=== PATIENT | male | born 1955 | race Caucasian/White ===

== ENCOUNTER 2018-12-04 08:44 | Inpatient (IN) | payer OTHER, SELFPAY ==
[2018-12-04] VITALS (33 sets, daily range): BP systolic 77–155; BP diastolic 47–89; PULSE 61–662; RESP 12–23; TEMP 35.8–37.2; O2SAT 92–100; BMI 27.3; BMI 25.9; BMI 26.0
[2018-12-04] MEDS: TICAGRELOR 90 MG TABLET 180 MG PO (08:47)
[2018-12-04] MEDS: Heparin 10,000 UNITS/10 ML Vial 4000 UNITS IV (08:47)
[2018-12-04] MEDS: Aspirin 81 MG TAB.CHEW 324 MG PO (08:47)
--- NOTE | 2018-12-04 08:50 | RAD_ITS ---
STUDY: X-RAY CHEST REASON FOR EXAM: Male, 63 years old. Chest pain TECHNIQUE: Single frontal view COMPARISON: None. FINDINGS: The lungs are clear and expanded. There is no demonstrated pleural abnormality. Normal size heart. Normal mediastinum and jared. Normal visualized pulmonary arteries. Normal visualized aortic arch and descending thoracic aorta. Normal visualized thoracic spine. Normal visualized ribs, clavicles, and shoulders. There is no demonstrated abnormality of the visualized soft tissue structures of the upper abdomen. RAD/Chest 1 View (Portable) IMPRESSION: Normal x-ray examination of the chest. Electronically Signed: Jhoan Rios DO at 9:03 EDT Tel [phone], Service support ,
[2018-12-04] MEDS: Morphine 4 MG/ML Syringe IV (08:56)
[2018-12-04] MEDS: Ondansetron 4 MG/2 ML Vial IV (08:56)
--- NOTE | 2018-12-04 09:00 | EKG12_ITS ---
Test Reason : CP Blood Pressure : / mmHG Vent. Rate : 059 BPM Atrial Rate : 059 BPM P-R Int : 190 ms QRS Dur : 102 ms QT Int : 392 ms P-R-T Axes : 062 049 051 degrees QTc Int : 388 ms Sinus bradycardia Cannot rule out Inferior infarct , age undetermined Anterolateral injury pattern ACUTE CO / STEMI Abnormal ECG Confirmed by LUIS MCCORMICK, FELICIA ([id number]), manuscript editor KAYLAN MAJANO ([id number]) on 12/06/2018 7:58:20 AM Referred By: Keysha Curtis Confirmed By:FELICIA SMITH MD
--- NOTE | 2018-12-04 09:03 | ED.VISSUMM ---
- ER Visit Summary Date of Service: 12/04/18 Chief Complaint: [] Chest pain driving car History of Present Illness: The patient is a 63 M [] patient indicates about 10 minutes because he was driving his car he began having left-sided chest pain and some diaphoresis brought to the hospital, he was found to have ST segment elevation on the monitor, he immediately underwent STEMI protocol, EKG showed ST segment elevation in the anterior leads, STEMI protocol was activated, he indicates he has not been ill recently, he had no fever no cough he is not prone to chest pain he has no history of heart lung kidney liver disease or any medical problems other than report his white blood cell count was elevated he was seen by hematology and there was no acute gross abnormality and he is being monitored. He indicates he is having chest pain only and some slight diaphoresis no back pain no numbness weakness or paresthesias no abdominal pain no fever cough he has not exerted himself in any way today, he denies any other medical problems he is on no telemetry meds Physical Examination: [] 15/80 pulse ox is 98% on room air he is afebrile General, no distress resting comfortably HEENT is generally unremarkable The neck is supple no adenopathy Cardiovascular, regular rate and rhythm Lungs, clear bilateral Abdomen, soft nontender Extremities, no clubbing cyanosis or edema Neurologic, awake alert answering questions appropriately moving all 4 extremities Test Results: [] Emergency Department Course and Treatment: [] EKG shows ST segment elevation in the anterior leads, STEMI protocol and cardiology were immediately contacted they are coming to see him he is undergone STEMI protocol with all the present medications he is been medicated for pain he remained hemodynamically stable here awake and alert pending direct transfer to cardiac [facility] [employer], he does report his pain which was about an 8 is not now down to about a 3 he is feeling better he is receiving IV fluid boluses Treatment Plan: [] Disposition: [] Admit directly to cardiac [facility] [employer] for STEMI treatment Impression: [] Acute anterior MD This note was generated with [employer] dictation software. It may contain incorrect words, spelling, and punctuation that were not noted in review of the chart prior to signing ED Disposition - Plan for ED Patient: Referrals: [facility] Doctor,Out of [Primary Care Provider] -
[2018-12-04] MEDS: 0.9% Normal Saline 1,000 ML 999 ML IV ×2 (09:04)
[2018-12-04 09:12] LABS: Absolute Lymphocyte Count 5.28 X10^3/ul (0.83-4.51); Absolute Neutrophil Count 4.1 X10^3/uL (2.0-7.7); Basophil# 0.04 X10^3/uL; Basophil% 0.4 % (0-1); Eosinophil# 0.14 X10^3/uL; Eosinophils% 1.3 % (0-5); Hematocrit 46.6 % (40-54); Hemoglobin 16.3 g/dl (13.0-16.5); Lymphocyte # 5.28 X10^3/ul (4.0); Lymphocyte % 48.9 % (19-41); Mean Corpuscular Hgb 31.2 pg (27.0-32.0); Mean Corpuscular Volume 89.3 fL (80-94); Mean Platelet Vol. 11.7 fl (6.2-12.0); Monocyte# 1.23 X10^3/uL; Monocyte% 11.4 % (0-10); Neutrophil # 4.07 X10^3/uL (2.7-7.7); Neutrophil % 37.7 % (47-70); Platelet Count 125 K/mm3 (150-450); RBC Distribution Width CV 13.3 % (11.6-14.6); RBC Distribution Width SD 43.4 fl (35.1-43.9); Red Blood Count 5.22 M/mm3 (4.6-6.2); White Blood Count 10.8 K/mm3 (4.4-11.0)
[2018-12-04 09:13] LABS: Differential Indicated SCAN CRITERIA MET; POSITIVE COUNT NO; POSITIVE DIFFERENTIAL YES; POSITIVE MORPHOLOGY NO; Prothrombin Time (Protime)PT. 13.4 SECONDS (11.7-14.9)
[2018-12-04 09:14] LABS: Partial Thromboplast Time 27.5 Seconds (24.1-36.2)
[2018-12-04 09:27] LABS: Anion Gap 6 (5-15); BUN 16 mg/dL (7-18); Calcium,Total 8.3 mg/dL (8.5-10.1); Chloride 107 mmol/L (98-107); Creatinine, Serum 0.94 mg/dL (0.70-1.30); EST Glomerular Filtration Rate 86 mL/min (>60); Est Glom Filt Rate - Afr Amer 104 mL/min (>60); Estimated Creatinine Clearance 95.95 ml/min; Glucose 119 mg/dL (74-106); Potassium 3.6 mmol/L (3.5-5.1); Sodium Level 141 mmol/L (136-145)
[2018-12-04 09:36] LABS: Reactive Lymphocyte 1+
[2018-12-04 09:37] LABS: Platelet Estimate SLT DEC (ADEQ)
--- NOTE | 2018-12-04 09:37 | PCM.CONS.C ---
Reason for Consult Date of Consultation: 12/04/18 Reason for Consultation: Chest pain History of Present Illness: The patient is a 63 year old M patient indicates that approximately 815 this morning he was driving his car he began having left-sided chest pain and some diaphoresis brought to the hospital, he was found to have ST segment elevation on the monitor, he immediately underwent STEMI protocol, EKG showed ST segment elevation in the anterior leads, STEMI protocol was activated, he indicates he has not been ill recently, he had no fever no cough he is not prone to chest pain he has no history of heart lung kidney liver disease or any medical problems other than report his white blood cell count was elevated he was seen by hematology and there was no acute gross abnormality and he is being monitored. He indicates he is having chest pain only and some slight diaphoresis no back pain no numbness weakness or paresthesias no abdominal pain no fever cough he has not exerted himself in any way today, he has previously not had any chest pain before. Past Medical History Allergies/Adverse Reactions: Allergies No Known Allergies Allergy (Verified 12/04/18 08:48) Home Medications: Ambulatory Orders Medication Instructions Recorded NK 12/04/18 Surgical History: no surgical history Smoking Status: Never smoker Alcohol: None Drugs: None Subjectve: Pleasant middle-aged man in no distress Objective: Vital Signs Temp Pulse Resp BP Pulse Ox 96.4 F L 65 14 85/64 L 98 12/04/18 08:58 12/04/18 09:11 12/04/18 09:11 12/04/18 09:11 12/04/18 09:11 Oxygen Flow Rate (L/min) 2 Oxygen Delivery Method Nasal Cannula Weight: 212 lb 15.465 oz Body Mass Index (BMI) 27.3 General: Awake, Alert, Oriented x 3 HEENT: PERRL, EOMI, Sclera Non Icteric Neck: Supple, Good ROM, No Lymph Node Enlargement Lungs: Clear to auscultation Cardiovascular: Regular Rhythm, Normal S1, Normal S2, No Murmurs, No Rubs, No Gallops Vascular: No Carotid Bruits, Normal Femoral Pulses, Normal Radial Pulses, Normal Dorsalis Pedal Pulse, Normal Posterior Tibial Pulses Abdomen: Bowel Sounds Present, Soft, Non Tender, No HSM, No Organomegaly Extremities: No Cyanosis, No Clubbing, No edema Musculoskeletal: No Erythema Skin: No Rashes Lymphatic: No Lymph Node Enlargement Neurological: No Focal Motor or Sensory Deficit Psych/Mental Status: Appropriate 12/04/18 09:06: WBC 10.8, RBC 5.22, Hgb 16.3, Hct 46.6, MCV 89.3, MCH 31.2, MCHC 35.0, RDW 13.3, RDW Differential 43.4, Plt Count 125 L, MPV 11.7, Immature Gran % (Auto) 0.300, Neut % (Auto) 37.7 L, Lymph % (Auto) 48.9 H, Holt % (Auto) 11.4 H, Eos % (Auto) 1.3, Baso % (Auto) 0.4, Absolute Neuts (auto) 4.1 12/04/18 09:06: PT 13.4, INR 1.0, APTT 27.5 12/04/18 09:06: Sodium 141, Potassium 3.6, Chloride 107, Carbon Dioxide 28.0, Anion Gap 6, BUN 16, Creatinine 0.94, Est GFR (MDRD) Af Amer 104, Est GFR (MDRD) Non-Af 86, BUN/Creatinine Ratio 17.0, Glucose 119 H, Calcium 8.3 L, Troponin I < 0.015 Rhythm: EKG: Normal sinus rhythm with a rate of 59 bpm and evidence of ST elevation noted in leads V2 through V6 suggestive of an acute extensive anterior myocardial infarction ECHO: Stress Test: Cardiac Cath: PCI: CT Surgery: Holter monitor: EPS: PPM: CXR: Chest CT Scan: Assessment/Plan 1. Acute anterior myocardial infarction Patient presents with an acute anterior myocardial infarction and the plan will be to take him to the [facility] and to have a cardiac catheterization and the above vessel angioplastied Risk benefits alternatives have been explained to him they understand and agreed to proceed. Thank you for allowing me to participate in the care of your patient. Please don't hesitate to call if any issues arise
--- NOTE | 2018-12-04 09:41 | CON.PCM_ITS ---
Reason for Consult Date of Consultation: 12/04/18 Reason for Consultation: Chest pain History of Present Illness: The patient is a 63 year old M patient indicates that approximately 815 this morning he was driving his car he began having left-sided chest pain and some diaphoresis brought to the hospital, he was found to have ST segment elevation on the monitor, he immediately underwent STEMI protocol, EKG showed ST segment elevation in the anterior leads, STEMI protocol was activated, he indicates he has not been ill recently, he had no fever no cough he is not prone to chest pain he has no history of heart lung kidney liver disease or any medical problems other than report his white blood cell count was elevated he was seen by hematology and there was no acute gross abnormality and he is being monitored. He indicates he is having chest pain only and some slight diapho resis no back pain no numbness weakness or paresthesias no abdominal pain no fever cough he has not exerted himself in any way today, he has previously not had any chest pain before. Past Medical History Allergies/Adverse Reactions: Allergies No Known Allergies Allergy (Verified 12/04/18 08:48) Home Medications: Ambulatory Orders Medication Instructions Recorded NK 12/04/18 Surgical History: no surgical history Smoking Status: Never smoker Alcohol: None Drugs: None Subjectve: Pleasant middle-aged man in no distress Objective: Vital Signs Temp Pulse Resp BP Pulse Ox 96.4 F L 65 14 85/64 L 98 12/04/18 08:58 12/04/18 09:11 12/04/18 09:11 12/04/18 09:11 12/04/18 09:11 Oxygen Flow Rate (L/min) 2 Oxygen Delivery Method Nasal Cannula Weight: 212 lb 15.465 oz Body Mass Index (BMI) 27.3 General: Awake, Alert, Oriented x 3 HEENT: PERRL, EOMI, Sclera Non Icteric Neck: Supple, Good ROM, No Lymph Node Enlargement Lungs: Clear to auscultation Cardiovascular: Regular Rhythm, Normal S1, Normal S2, No Murmurs, No Rubs, No Gallops Vascular: No Carotid Bruits, Normal Femoral Pulses, Normal Radial Pulses, Normal Dorsalis Pedal Pulse, Normal Posterior Tibial Pulses Abdomen: Bowel Sounds Present, Soft, Non Tender, No HSM, No Organomegaly Extremities: No Cyanosis, No Clubbing, No edema Musculoskeletal: No Erythema Skin: No Rashes Lymphatic: No Lymph Node Enlargement Neurological: No Focal Motor or Sensory Deficit Psych/Mental Status: Appropriate 12/04/18 09:06: WBC 10.8, RBC 5.22, Hgb 16.3, Hct 46.6, MCV 89.3, MCH 31.2, MCHC 35.0, RDW 13.3, RDW Differential 43.4, Plt Count 125 L, MPV 11.7, Immature Gran % (Auto) 0.300, Neut % (Auto) 37.7 L, Lymph % (Auto) 48.9 H, Allen % (Auto) 11.4 H, Eos % (Auto) 1.3, Baso % (Auto) 0.4, Absolute Neuts (auto) 4.1 12/04/18 09:06: PT 13.4, INR 1.0, APTT 27.5 12/04/18 09:06: Sodium 141, Potassium 3.6, Chloride 107, Carbon Dioxide 28.0, Anion Gap 6, BUN 16, Creatinine 0.94, Est GFR (MDRD) Af Amer 104, Est GFR (MDRD) Non-Af 86, BUN/Creatinine Ratio 17.0, Glucose 119 H, Calcium 8.3 L, Troponin I < 0.015 Rhythm: EKG: Normal sinus rhythm with a rate of 59 bpm and evidence of ST elevation noted in leads V2 through V6 suggestive of an acute extensive anterior myocardial infarction ECHO: Stress Test: Cardiac Cath: PCI: CT Surgery: Holter monitor: EPS: PPM: CXR: Chest CT Scan: Assessment/Plan 1. Acute anterior myocardial infarction * Patient presents with an acute anterior myocardial infarction and the plan will be to take him to the [facility] and to have a cardiac catheterization and the above vessel angioplastied * Risk benefits alternatives have been explained to him they understand and agreed to proceed. * * Thank you for allowing me to participate in the care of your patient. Please don't hesitate to call if any issues arise
--- NOTE | 2018-12-04 10:11 | EKG12_ITS ---
Test Reason : PCI Blood Pressure : / mmHG Vent. Rate : 078 BPM Atrial Rate : 078 BPM P-R Int : 210 ms QRS Dur : 090 ms QT Int : 358 ms P-R-T Axes : 054 037 046 degrees QTc Int : 408 ms Sinus rhythm with 1st degree A-V block Low voltage QRS Septal infarct , age undetermined Abnormal ECG No previous ECGs available Confirmed by LUIS MCCORMICK, FELCIIA ([id number]), editor department KAYLAN MAJANO ([id number]) on 12/06/2018 8:21:29 AM Referred By: Keysha Curtis Confirmed By:FELICIA SMITH MD
--- NOTE | 2018-12-04 10:15 | EKG12_ITS ---
Test Reason : AM EKG Blood Pressure : / mmHG Vent. Rate : 068 BPM Atrial Rate : 068 BPM P-R Int : 182 ms QRS Dur : 082 ms QT Int : 376 ms P-R-T Axes : 059 042 078 degrees QTc Int : 399 ms Normal sinus rhythm Low voltage QRS Borderline ECG Recent anterior OK When compared with ECG of 04-DEC-2018 08:48, MANUAL COMPARISON REQUIRED, DATA IS UNCONFIRMED Confirmed by LUIS MCCORMICK, FELICIA ([id number]), manager editorial KAYLAN MAJANO ([id number]) on 12/06/2018 8:19:23 AM Referred By: Keysha Curtis Confirmed By:FELICIA SMITH MD
--- NOTE | 2018-12-04 10:27 | ECHOD_ITS ---
Reason For Study: S/P NC Procedure This was a 2D Doppler, Color Flow transthoracic echocardiogram. Exam performed portable in ICU/CCU. Left Ventricle Normal LV size. The estimated ejection fraction is 45 %. Stage 2 diastolic dysfunction. Mid- Anterior : Hypokinetic. Anterior [place] : Akinetic. Lateral [place] : Hypokinetic. Basal anteroseptal: Normal. Mid-anteroseptal : Hypokinetic. There are regional wall motion abnormalities as specified. Right Ventricle Normal RV size. Normal systolic function. Atria Normal left atrium. Normal right atrium. Mitral Valve Normal mitral valve. Trivial eccentric mitral valve insufficiency. Tricuspid Valve Normal tricuspid valve. Mild (1+) tricuspid valve insufficiency. Pulmonary artery systolic pressure is 24 mmHg. Aortic Valve Trisinus/trileaflet aortic valve. Mild focal aortic valve calcification. Pulmonic Valve Normal pulmonic valve. Great Vessels Mild to moderately dilated aortic root. The pulmonary artery is normal size. Normal inferior vena cava. Pericardium/Pleural No pericardial effusion. MMode/2D Measurements & Calculations LVIDd: 4.0 cm IVSd: 1.2 cm LVOT diam: 2.0 cm LVIDs: 2.8 cm LVPWd: 1.1 cm LVOT area: 3.2 cm2 RVDd: 4.0 cm FS: 29.3 % Ao root diam: 4.2 cm LAV(MOD-sp2): 48.5 ml LVAd ap4: 34.9 cm2 EDV(MOD-sp4): 113.0 ml EDV(sp4-el): 115.9 ml LVAs ap4: 24.4 cm2 ESV(MOD-sp4): 62.9 ml ESV(sp4-el): 66.4 ml EF(MOD-sp4): 44.3 % EF(sp4-el): 42.7 % SV(MOD-sp4): 50.0 ml SV(sp4-el): 49.5 ml LA A4 area: 13.9 cm2 LA dimension(2D): 3.4 cm RA A4 area: 13.7 cm2 Time Measurements MV dec time: 0.15 sec Doppler Measurements & Calculations MV E max alphonso: 103.1 cm/sec Lat Peak E' [place]: 9.8 cm/sec Med Peak E' [place]: 8.3 cm/sec MV A max alphonso: 50.7 cm/sec E/E' lat: 10.5 E/E' med: 12.5 MV E/A: 2.0 Ao V2 max: 99.1 cm/sec LV V1 max: 90.0 cm/sec SV(LVOT): 65.6 ml Ao max P.9 mmHg LV V1 max P.2 mmHg Ao V2 mean: 75.2 cm/sec LV V1 mean P.0 mmHg Ao mean P.5 mmHg LV V1 mean: 67.0 cm/sec Ao V2 VTI: 21.3 cm LV V1 VTI: 20.4 cm BEBO(I,D): 3.1 cm2 BEBO(V,D): 2.9 cm2 PA V2 max: 64.5 cm/sec TR max alphonso: 224.9 cm/sec TR max P.2 mmHg Interpretation Summary Normal LV size. The estimated ejection fraction is 45 %. Stage 2 diastolic dysfunction. Mild (1+) tricuspid valve insufficiency. Pulmonary artery systolic pressure is 24 mmHg. Mild to moderately dilated aortic root. Ordering Physician: Chacho Vale Referring Physician: Keysha Curtis Performed By: Wanda Bui, RDCS, RVT
--- NOTE | 2018-12-04 10:35 | EKG12_ITS ---
Test Reason : POST STEMI Blood Pressure : / mmHG Vent. Rate : 076 BPM Atrial Rate : 076 BPM P-R Int : 214 ms QRS Dur : 088 ms QT Int : 364 ms P-R-T Axes : 056 052 050 degrees QTc Int : 409 ms Sinus rhythm with 1st degree A-V block Low voltage QRS ST elevation consider anterolateral injury or acute infarct * ACUTE SC Abnormal ECG Confirmed by LUIS MCCORMICK, FELICIA ([id number]), manuscript editor HANNA MCCANN ([id number]) on 12/06/2018 12:33:30 PM Referred By: Keysha Curtis Confirmed By:FELICIA SMITH MD
[2018-12-04] MEDS: 0.9% Normal Saline 1,000 ML 75 ML IV (11:00)
[2018-12-04 11:26] LABS: ACT Activated Clotting Time 378 sec (74-137)
[2018-12-04 11:26] LABS: Base Excess -5 mmol/L (-2 to +2); Blood Gas Specimen Type ART; PO2 366 mmHG (75-100); SO2 100 % (95-99); Total Carbon Dioxide 22 mmol/L; pCO2 37.6 mmHg (35-45); pH 7.36 (7.35-7.45)
[2018-12-04 11:26] LABS: ACT Activated Clotting Time 153 sec (74-137)
--- NOTE | 2018-12-04 11:30 | CL.I_ITS ---
Patient Name: FRANKLYN BRO Study Date: 12/04/2018 Performing: Keysha Curtis MD Ht: 74.02 inches 188 cm : 1955 Wt: 213.85 lbs 97 kg Age: 63 Gender: male BSA: 2.24 PROCEDURE(S) PERFORMED [id number]/COR/LV FM36-VNP, BETO AND/OR PTCA, ARTERY OR GRAFT, SINGLE VESSEL [id number], EACH ADD'L CORONARY ART, SAME MAJOR CLINICAL PROFILE AND CO-MORBIDITIES Indications: Suspected CAD Heart Failure: None Stress/Imaging Stress/Image Study Performed: No CAD Presentations: STEMI. Symptom onset Date/Time: 12/04/2018 08:15:00 CONCLUSIONS 100% Prox LAD LVEF 35% 40% Prox Ramus RECOMMENDATIONS ASA Indefinitley Brilinta for at least 12 months Follow up with Dr. Vale DESCRIPTION OF PROCEDURE The patient arrived to the procedure lab. The risks and benefits of the procedure as well as a full d escription of our services here and lack of surgical backup were fully explained to the patient and/o r their significant other prior to the catheterization. The Timeout was completed, verifying the scotty ect patient and procedure. The patient's procedural site was prepped and draped in the usual fashion. Local anesthetic was given subcutaneously to right radial region with Lidocaine 2%. Using a modified Seldinger technique, arterial access was obtained via the right radial artery, a 6Fr sheath was inse rted.. Left Coronary Artery selective angiography was performed in multiple views using a 5 Fr. 4.0 [place] catheter. Right Coronary Artery selective angiography was then performed in multiple views usin g a 5 Fr. 4.0 [place] catheter. Left Ventriculography was performed in [place] projection using a 5 Fr. Pig tail catheter. LV to AO pullback pressures were then recorded XB 3 Guide catheter was inserted and engaged into the LCA. Runthrough Guide wire was advanced to the LAD. [place] AP inserted Pass # 1 [place] AP Removed Emerge 3x20 Balloon catheter was inserted. Bal loon catheter was advanced across lesion in the LAD, prox. PTCA balloon inflated at 8 atms for 20 sec s. PTCA balloon inflated at 19 atms for 20 secs. PTCA balloon inflated at 16 atms for 15 secs. #2 Run through Guide wire was advanced to the, unsuccessful. removed Whisper Guide wire was advanced to the LAD. 3x24 Synergy Drug Eluting stent was inserted. Drug Eluting stent was advanced across the lesion in the LAD, prox. 2x12 Emerge Balloon catheter was inserted. Balloon catheter was advanced across les ion in the first diagonal, proximal. Balloon catheter was inserted post stent. PTCA balloon inflated at 16 atms for 15 secs. 3.25x20 NC Emerge Balloon catheter was inserted. Balloon catheter was inserte d post stent. PTCA balloon inflated at 10 atms for 15 secs. PTCA balloon inflated at 14 atms for 13 secs. Balloon catheter was inserted post stent. PTCA balloon inflated at 14 atms for 10 s ecs. PTCA balloon inflated at 18 atms for 17 secs. Angiogram performed post stent deployment. The a rterial sheath was pulled and a TR Band was applied for hemostasis CORONARY ANGIOGRAPHY DOMINANCE: Right Dominant LEFT HEART ASSESSMENT Left Ventricular Ejection Fraction: by LV Gram 35 % LVEDP: 21 mmHg LEFT MAIN: Angiographically normal LEFT ANTERIOR DECENDING ARTERY: 50% ostial. 100% Prox CIRCUMFLEX ARTERY: Angiographically normal RAMUS: 40% Prox RIGHT CORONARY ARTERY: Angiographically normal INTERVENTION INFORMATION LESION SITE: LAD (Proximal) Lesion Complexity: High/C, thrombus present: Yes, culprit lesion: Yes Pre Stenosis: 100 % Pre intervention SHENA flow: 0 PROCEDURE: Thrombectomy, Drug Eluting Stent with pre and post dilatation Post Stenosis: 0 % Post intervention SHENA flow: 3 Lesion Devices: Cordis 6 Fr XB3.0 100cm Guide Catheter Terumo .014 Runthrough Extra Floppy 180cm straight Terumo .014 Runthrough Extra Floppy 180cm straight Skyler Sci NC EMERGE MR 2.25x20 BALLOON Skyler Sci Synergy MR BETO 3.00x24 Skyler Sci EMERGE MR 3.00x20 BALLOON Medtronic 6 Fr. [place] AP Aspiration Catheter Elizabeth .014 HT Whisper MS Straight 190cm Skyler Sci EMERGE MR 2.00x12 BALLOON Skyler Sci NC EMERGE MR 3.25x20 BALLOON COMPLICATIONS No Complications PROCEDURE MEDICATIONS Oxygen: 100 % FiO2 via non-rebreather mask Oxygen: 4 L/min via nasal cannula Angiomax Bolus 14.3 ml's 12/04/2018 09:32:07 Angiomax 5mg / ml @ 34 ml/hr IV started @ 34 ml/hr @ 12/04/2018 09:33:28 IV Bolus: .9 NaCl 200 ml total (2000cc given in ED prior to Pt arrival in bundle tier and labeler) 12/04/2018 10:10:32 SUMMARY OF HEMODYNAMIC DATA Time AIR REST ECG 09:21:23 AO 82/57 (69) SA 09:28:37 AO 66/42 (53) 09:39:54 LV 87/12, 21 10:00:35 LV 90/10, 20 10:00:42 LVp 91/14, 26 10:01:59 AOp 82/59 (69) 10:02:04 Signed By Keysha Curtis MD On 12/21/2018 10:29:19 Keysha Curtis MD
--- NOTE | 2018-12-04 13:25 | HP.PCM_ITS ---
<Prakash Saunders - Last Filed: 12/04/18 13:21> Problem List (1) STEMI (ST elevation myocardial infarction) Status: Acute (2) CAD (coronary artery disease) Status: Chronic (3) Hypertension Status: Chronic (4) Hyperlipidemia Status: Chronic History of Present Illness Date of Admission: 12/04/18 Chief Complaint: Chest tightness The patient is a 63 year old M with no prior medical history, not on any home medications, who presents to the emergency room from home with complaints of chest tightness. He was driving on the highway and spontaneously developed tightness in the middle of his chest with associated discomfort in his left arm, and diaphoresis. He has not experienced any pain like this in his past. He tried to keep driving however it became worse and he came to [place] [facility]. He was found to have STEMI in the anterior leads. He was also mildly thrombocytopenic with platelets at 125. He was taken to the [facility] and found to have LAD disease 100 proximal, 50% ostial, Proximal was was successfully stented, he also was noted to have EF of 35% by LV gram. He is currently resting comfortably with no chest pain, heaviness, tightness, pressure, shortness of breath, diaphoresis, left arm pain, nausea or vomiting following the heart catheterization and stenting. [] Past Medical History Past Medical History (Chronic Problems): Chronic Problems CAD (coronary artery disease) (Chronic) Hypertension (Chronic) Hyperlipidemia (Chronic) Allergies No Known Allergies Allergy (Verified 12/04/18 08:48) Home Medications: Ambulatory Orders Medication Instructions Recorded NK 12/04/18 Surgical History: tonsillectomy, - - mouth surgery Psychiatric History: No pertinent psych hx Lives: Spouse/ Significant Other Smoking Status: Never smoker Tobacco Use: Non-smoker Alcohol: None Drugs: None - *Family History Maternal History Items: Heart Disease Paternal History Items: No pertinent history Review of Systems Constitutional: Denies: Chills, Fever, Weight Change HEENT: Denies: Head Aches, Sinus Congestion, Sinus Drainage Cardiovascular: Reports: Chest Pain, Chest Tightness, - - diaphoresis. Denies: Palpitations Respiratory: Denies: Cough, Shortness of breath at rest, Sputum production Gastrointestinal: Denies: Abdominal Pain, Nausea, Vomiting Genitourinary: Denies: Dysuria Musculoskeletal: Denies: Joint Pain, Joint Tenderness Skin: Denies: Rash, Wounds Neurological: Denies: Numbness, Tingling, Focal weakness Psychiatric: Denies: Anxiety, Depression, Homicidal Ideations, Suicidal Ideations Hematologic/ Lymphatic: Denies: Easy Bruising, Easy Bleeding VTE Information - Inpt Only VTE Present on Admission: No VTE Mechan Device Prophylaxis: None VTE Pharm Prophylaxis ordered?: No Reason prophylaxis not ordered:: Medical Contraindication Patient Problems: Active and Suspected Problems STEMI (ST elevation myocardial infarction) (Acute) - Physical Exam General: Alert, Oriented x3, Cooperative HEENT: Atraumatic, PERRLA, EOMI, Normocephalic Neck: Supple, No JVD, Negative Carotid Bruits Lungs: Clear to auscultation, Normal air movement Cardiovascular: Regular rate, No murmurs Abdomen: Bowel Sounds Present, Soft, Non Tender Extremities: No edema, Capillary Refill Less than 3 Seconds Skin: No rashes, No breakdown Musculoskeletal: No Tenderness to Palpation of Joints or Extremities Neurological: Cranial nerves II-XII grossly intact Psych/Mental Status: Normal Affect, Appropriate Vital Signs Temp Pulse Resp BP Pulse Ox 97.8 F 79 23 H 88/63 L 92 12/04/18 10:30 12/04/18 10:30 12/04/18 10:30 12/04/18 10:30 12/04/18 10:30 Oxygen Flow Rate (L/min) 4 Oxygen Delivery Method Nasal Cannula Weight: 213 lb 6.4 oz Body Mass Index (BMI) 25.9 Laboratory Tests Past 24 Hrs 12/04/18 12/04/18 12/04/18 09:06 09:06 09:06 WBC 10.8 RBC 5.22 Hgb 16.3 Hct 46.6 MCV 89.3 MCH 31.2 MCHC 35.0 RDW 13.3 RDW Differential 43.4 Plt Count 125 L MPV 11.7 Immature Gran % (Auto) 0.300 Neut % (Auto) 37.7 L Lymph % (Auto) 48.9 H [place] % (Auto) 11.4 H Eos % (Auto) 1.3 Baso % (Auto) 0.4 Absolute Neuts (auto) 4.1 Absolute Lymphs (auto) 5.28 H Total Counted Not Reportable Reactive Lymphocytes 1+ Platelet Estimate SLT DEC PT 13.4 INR 1.0 APTT 27.5 Activated Clotting Time Specimen Type pH Bicarbonate Actual POC Total CO2 Base Excess O2 Saturation ABG pCO2 ABG pO2 Sodium 141 Potassium 3.6 Chloride 107 Carbon Dioxide 28.0 Anion Gap 6 BUN 16 Creatinine 0.94 Estim Creat Clear Calc 95.95 Est GFR (MDRD) Af Amer 104 Est GFR (MDRD) Non-Af 86 BUN/Creatinine Ratio 17.0 Glucose 119 H Calcium 8.3 L Troponin I < 0.015 12/04/18 12/04/18 12/04/18 09:29 09:58 10:07 WBC RBC Hgb Hct MCV MCH MCHC RDW RDW Differential Plt Count MPV Immature Gran % (Auto) Neut % (Auto) Lymph % (Auto) [place] % (Auto) Eos % (Auto) Baso % (Auto) Absolute Neuts (auto) Absolute Lymphs (auto) Total Counted Reactive Lymphocytes Platelet Estimate PT INR APTT Activated Clotting Time 153 H 378 H Specimen Type ART pH 7.36 Bicarbonate Actual 21.0 L POC Total CO2 22 Base Excess -5 L O2 Saturation 100 H ABG pCO2 37.6 ABG pO2 366 H* Sodium Potassium Chloride Carbon Dioxide Anion Gap BUN Creatinine Estim Creat Clear Calc Est GFR (MDRD) Af Amer Est GFR (MDRD) Non-Af BUN/Creatinine Ratio Glucose Calcium Troponin I Assessment/Plan All Active Problems STEMI (ST elevation myocardial infarction) (Acute) 1. STEMI, CAD - stent to LAD today per Dr. Vale and Dr. Curtis. Now on brilinta, lisinopril, coreg, aspirin, lipitor. No further symptoms. VSS. EF 35% per cath. Echo pending. 2. HTN - as above 3. HLD - as above This patient was seen by Prakash Saunders PA-C under the supervision of Dr. Cha <Carolina Cha - Last Filed: 12/04/18 14:21> History of Present Illness The patient is a 63 year old M [] Past Medical History Allergies No Known Allergies Allergy (Verified 12/04/18 08:48) - Physical Exam Vital Signs Temp Pulse Resp BP Pulse Ox 97.8 F 79 23 H 88/63 L 92 12/04/18 10:30 12/04/18 10:30 12/04/18 10:30 12/04/18 10:30 12/04/18 10:30 Oxygen Flow Rate (L/min) 4 Oxygen Delivery Method Nasal Cannula Weight: 96.797 kg Body Mass Index (BMI) 25.9 Laboratory Tests Past 24 Hrs 12/04/18 12/04/18 12/04/18 09:06 09:06 09:06 WBC 10.8 RBC 5.22 Hgb 16.3 Hct 46.6 MCV 89.3 MCH 31.2 MCHC 35.0 RDW 13.3 RDW Differential 43.4 Plt Count 125 L MPV 11.7 Immature Gran % (Auto) 0.300 Neut % (Auto) 37.7 L Lymph % (Auto) 48.9 H [place] % (Auto) 11.4 H Eos % (Auto) 1.3 Baso % (Auto) 0.4 Absolute Neuts (auto) 4.1 Absolute Lymphs (auto) 5.28 H Total Counted Not Reportable Reactive Lymphocytes 1+ Platelet Estimate SLT DEC PT 13.4 INR 1.0 APTT 27.5 Activated Clotting Time Specimen Type pH Bicarbonate Actual POC Total CO2 Base Excess O2 Saturation ABG pCO2 ABG pO2 Sodium 141 Potassium 3.6 Chloride 107 Carbon Dioxide 28.0 Anion Gap 6 BUN 16 Creatinine 0.94 Estim Creat Clear Calc 95.95 Est GFR (MDRD) Af Amer 104 Est GFR (MDRD) Non-Af 86 BUN/Creatinine Ratio 17.0 Glucose 119 H Calcium 8.3 L Troponin I < 0.015 12/04/18 12/04/18 12/04/18 09:29 09:58 10:07 WBC RBC Hgb Hct MCV MCH MCHC RDW RDW Differential Plt Count MPV Immature Gran % (Auto) Neut % (Auto) Lymph % (Auto) [place] % (Auto) Eos % (Auto) Baso % (Auto) Absolute Neuts (auto) Absolute Lymphs (auto) Total Counted Reactive Lymphocytes Platelet Estimate PT INR APTT Activated Clotting Time 153 H 378 H Specimen Type ART pH 7.36 Bicarbonate Actual 21.0 L POC Total CO2 22 Base Excess -5 L O2 Saturation 100 H ABG pCO2 37.6 ABG pO2 366 H* Sodium Potassium Chloride Carbon Dioxide Anion Gap BUN Creatinine Estim Creat Clear Calc Est GFR (MDRD) Af Amer Est GFR (MDRD) Non-Af BUN/Creatinine Ratio Glucose Calcium Troponin I Assessment/Plan This patient was seen in conjunction with KATINA Wolf. I have independently interviewed and examined the patient and reviewed pertinent historical, laboratory, and other data. Please refer to KATINA Wolf note for his patient's presentation, findings, and recommendations. I have reviewed and his note and concur with his documentation 63-year-old male with no significant past medical history comes in with complaints of chest pain. Patient was driving to his granddaughter's birthday green party when he had severe left-sided chest pain with diaphoresis. Admitting EKG shows ST segment in the anterior leads. He underwent STEMI protocol. Findings in cardiac cath showed occlusion of his proximal LAD, status post BETO Patient was seen post-cath in the ICU, he denied any new complaints. He feels much improved. Vitals reviewed, relatively hypotensive- asymptomatic Physical Exam: Gen: Appears comfortable, not pale, not jaundiced CVS:HS I +II, regular, no murmurs RESP: CTA GI: BS present abnd soft, nontender, no palpable organs EXT:No edema ASSESSMENT: 1. STEMI, SHENA score of 1, s/p BETO to prox LAD Plan: Continue on aspirin, Brilinta, statin, lisinopril, Coreg Lipid profile, HbA1c in a.m. Code Visit Inpatient E&M: 26503 Init Hosp L3
[2018-12-04] MEDS: Atorvastatin Calcium 40 MG Tablet PO (14:02)
[2018-12-04 15:37] LABS: Hemoglobin A1c 4.9 % (4.2-6.3)
[2018-12-04] MEDS: TICAGRELOR 90 MG TABLET PO (21:16)
[2018-12-05] VITALS (23 sets, daily range): BP systolic 79–111; BP diastolic 48–65; PULSE 66–86; RESP 14–20; TEMP 36.7–38.1; O2SAT 92–100; BMI 27.2
[2018-12-05 04:27] LABS: Hematocrit 38.9 % (40-54); Hemoglobin 13.6 g/dl (13.0-16.5); Mean Corpuscular Hgb 31.5 pg (27.0-32.0); Mean Platelet Vol. 12.1 fl (6.2-12.0); Platelet Count 78 K/mm3 (150-450); RBC Distribution Width CV 13.3 % (11.6-14.6); Red Blood Count 4.32 M/mm3 (4.6-6.2); White Blood Count 7.5 K/mm3 (4.4-11.0)
[2018-12-05 04:36] LABS: Scan Indicated on CBC? Y/N NO
[2018-12-05 05:30] LABS: ALB/GLOB Ratio 1.2 RATIO (0.9-2.4); AST(SGOT) 238 U/L (15-37); Alanine Aminotransfer ALT/SGPT 47 U/L (16-61); Albumin, Serum 3.1 g/dL (3.2-5.0); Alkaline Phosphatase 53 U/L (45-117); Anion Gap 5 (5-15); BUN 13 mg/dL (7-18); BUN/Creat Ratio 16.3 RATIO (10-20); Chloride 107 mmol/L (98-107); Cholesterol 129 mg/dL (200); EST Glomerular Filtration Rate 105 mL/min (>60); Est Glom Filt Rate - Afr Amer 127 mL/min (>60); Estimated Creatinine Clearance 119.05 ml/min; Globulin 2.6 g/dL (2.2-4.2); Glucose 101 mg/dL (74-106); High Density Lipoprotein 37 mg/dL; Potassium 3.8 mmol/L (3.5-5.1); Protein, Total 5.7 g/dL (6.4-8.2); Sodium Level 140 mmol/L (136-145); Triglycerides 136 mg/dL; Very Low Density Lipoprotein 27 mg/dL (5-40)
--- NOTE | 2018-12-05 07:17 | PN.CARD_ITS ---
Subjectve: Patient seen and evaluated. Appears to be doing well this morning. No dizziness and no chest pain. Objective: Vital Signs Temp Pulse Resp BP Pulse Ox 98.7 F 70 17 81/59 L 93 12/05/18 04:00 12/05/18 06:00 12/05/18 06:00 12/05/18 06:00 12/05/18 07:00 Oxygen Flow Rate (L/min) 2 Oxygen Delivery Method Room Air Weight: 213 lb 2.992 oz Body Mass Index (BMI) 25.9 Intake and Output for Last 24 Hours 12/03/18 12/04/18 12/05/18 23:59 23:59 23:59 Intake Total 1340 / 1340 120 / 120 Output Total 450 / 450 Balance 890 / 890 120 / 120 General: Awake, Alert, Oriented x 3 HEENT: PERRL, EOMI, Sclera Non Icteric Neck: Supple, Good ROM, No Lymph Node Enlargement Lungs: Clear to auscultation Cardiovascular: Regular Rhythm, Normal S1, Normal S2, No Murmurs, No Rubs, No Gallops Vascular: No Carotid Bruits, Normal Femoral Pulses, Normal Radial Pulses, Normal Dorsalis Pedal Pulse, Normal Posterior Tibial Pulses Abdomen: Bowel Sounds Present, Soft, Non Tender, No HSM, No Organomegaly Extremities: No Cyanosis, No Clubbing, No edema Musculoskeletal: No Erythema Skin: No Rashes Lymphatic: No Lymph Node Enlargement Neurological: No Focal Motor or Sensory Deficit Psych/Mental Status: Appropriate 12/04/18 09:06: WBC 10.8, RBC 5.22, Hgb 16.3, Hct 46.6, MCV 89.3, MCH 31.2, MCHC 35.0, RDW 13.3, RDW Differential 43.4, Plt Count 125 L, MPV 11.7, Immature Gran % (Auto) 0.300, Neut % (Auto) 37.7 L, Lymph % (Auto) 48.9 H, [place] % (Auto) 11.4 H, Eos % (Auto) 1.3, Baso % (Auto) 0.4, Absolute Neuts (auto) 4.1, Total Counted Not Reportable 12/04/18 09:06: PT 13.4, INR 1.0, APTT 27.5 12/04/18 09:06: Sodium 141, Potassium 3.6, Chloride 107, Carbon Dioxide 28.0, Anion Gap 6, BUN 16, Creatinine 0.94, Est GFR (MDRD) Af Amer 104, Est GFR (MDRD) Non-Af 86, BUN/Creatinine Ratio 17.0, Glucose 119 H, Calcium 8.3 L, Troponin I < 0.015 12/04/18 09:06: Hemoglobin A1c 4.9 12/04/18 10:07: pH 7.36, Bicarbonate Actual 21.0 L, POC Total CO2 22, Base Excess -5 L, O2 Saturation 100 H, ABG pCO2 37.6, ABG pO2 366 H* 12/05/18 04:10: WBC 7.5, RBC 4.32 L, Hgb 13.6, Hct 38.9 L, MCV 90.0, MCH 31.5, MCHC 35.0, RDW 13.3, RDW Differential 43.0, Plt Count 78 L, MPV 12.1 H 12/05/18 04:10: Sodium 140, Potassium 3.8, Chloride 107, Carbon Dioxide 28.0, Anion Gap 5, BUN 13, Creatinine 0.80, Est GFR (MDRD) Af Amer 127, Est GFR (MDRD) Non-Af 105, BUN/Creatinine Ratio 16.3, Glucose 101, Calcium 8.0 L, Total Bilirubin 1.10 H, Troponin I 73.500 H*, Triglycerides 136, Cholesterol 129, LDL Cholesterol 65, VLDL Cholesterol 27, HDL Cholesterol 37 L Rhythm: EKG: ECHO: Stress Test: Cardiac Cath: PCI: CT Surgery: Holter monitor: EPS: PPM: CXR: Chest CT Scan: Medical Necessity - Tobacco Use Smoking Status: Never smoker Tobacco Use: Non-smoker Assessment/Plan 1. Acute anterior myocardial infarction * Patient presents with an acute anterior myocardial infarction , status post angioplasty and stenting of the left anterior descending artery and diagonal vessel. * This morning appears to be doing well mild EKG changes with evolutionary anterior changes * Will recommend echocardiogram this morning * Beta-blockers, aspirin and lisinopril as tolerated * High intensity statin * * Further recommendations will depend on the results of the above.
--- NOTE | 2018-12-05 07:26 | PCM.PN.HOSP ---
Patient Problems: Active and Suspected Problems STEMI (ST elevation myocardial infarction) (Acute) Subjective: 63-year-old gentleman in relatively good health who presented with chest discomfort. Diagnosis of acute anterior myocardial infarction patient underwent emergency left heart catheterization with angioplasty and stenting of the left anterior descending artery and diagonal vessel. Objective: GENERAL: cooperative HEENT: Atraumatic; moist oral mucosa EYES; Anicteric, Normal Conjunctiva NECK; supple, normal thyroid, no distended JVD. RESPIRATORY: Diminished to auscultation bilaterally, CARDIOVASCULAR: Regular S1 S2, no audible murmurs GI: soft, non-tender, normoactive bowel sounds, : No Renal angle tenderness; EXTREMITIES: No edema, no clubbing, no cyanosis. MUSCULOSKELETAL: No Joint Tenderness; no muscle waisting NEURO: Awake; no lateralizing signs. SKIN: No Rash PSYCH; Normal affect Vitals/I&O's: Vital Signs Temp Pulse Resp BP Pulse Ox 98.7 F 70 17 81/59 L 93 12/05/18 04:00 12/05/18 06:00 12/05/18 06:00 12/05/18 06:00 12/05/18 07:00 Oxygen Flow Rate (L/min) 2 Oxygen Delivery Method Room Air Weight: 96.7 kg Body Mass Index (BMI) 25.9 Intake and Output for Last 24 Hours 12/03/18 12/04/18 12/05/18 23:59 23:59 23:59 Intake Total 1340 / 1340 120 / 120 Output Total 450 / 450 Balance 890 / 890 120 / 120 Laboratory Results 12/04/18 09:06: WBC 10.8, RBC 5.22, Hgb 16.3, Hct 46.6, MCV 89.3, MCH 31.2, MCHC 35.0, RDW 13.3, RDW Differential 43.4, Plt Count 125 L, MPV 11.7, Immature Gran % (Auto) 0.300, Neut % (Auto) 37.7 L, Lymph % (Auto) 48.9 H, [place] % (Auto) 11.4 H, Eos % (Auto) 1.3, Baso % (Auto) 0.4, Absolute Neuts (auto) 4.1, Absolute Lymphs (auto) 5.28 H, Total Counted Not Reportable, Reactive Lymphocytes 1+, Platelet Estimate SLT 12/04/18 09:06: PT 13.4, INR 1.0, APTT 27.5 12/04/18 09:06: Sodium 141, Potassium 3.6, Chloride 107, Carbon Dioxide 28.0, Anion Gap 6, BUN 16, Creatinine 0.94, Estim Creat Clear Calc 95.95, Est GFR (MDRD) Af Amer 104, Est GFR (MDRD) Non-Af 86, BUN/Creatinine Ratio 17.0, Glucose 119 H, Calcium 8.3 L, Troponin I < 0.015 12/04/18 09:06: Hemoglobin A1c 4.9 12/04/18 09:29: Activated Clotting Time 153 H 12/04/18 09:58: Activated Clotting Time 378 H 12/04/18 10:07: Specimen Type ART, pH 7.36, Bicarbonate Actual 21.0 L, POC Total CO2 22, Base Excess -5 L, O2 Saturation 100 H, ABG pCO2 37.6, ABG pO2 366 H* 12/05/18 04:10: WBC 7.5, RBC 4.32 L, Hgb 13.6, Hct 38.9 L, MCV 90.0, MCH 31.5, MCHC 35.0, RDW 13.3, RDW Differential 43.0, Plt Count 78 L, MPV 12.1 H 12/05/18 04:10: Sodium 140, Potassium 3.8, Chloride 107, Carbon Dioxide 28.0, Anion Gap 5, BUN 13, Creatinine 0.80, Estim Creat Clear Calc 119.05, Est GFR (MDRD) Af Amer 127, Est GFR (MDRD) Non-Af 105, BUN/Creatinine Ratio 16.3, Glucose 101, Calcium 8.0 L, Total Bilirubin 1.10 H, AST 238 H, ALT 47, Alkaline Phosphatase 53, Troponin I 73.500 H*, Total Protein 5.7 L, Albumin 3.1 L, Globulin 2.6, Albumin/Globulin Ratio 1.2, Triglycerides 136, Cholesterol 129, LDL Cholesterol 65, VLDL Cholesterol 27, HDL Cholesterol 37 L Current Medications Aspirin (Ecotrin) 81 mg PO DAILY@0800 [facility] Atorvastatin Calcium (Lipitor) 40 mg PO QHS [facility] Last Admin: 12/04/18 21:14 Dose: Not Given Atropine Sulfate () 0.5 mg IV UD PRN PRN Reason: HR <50 bpm Carvedilol (Coreg) 3.125 mg PO BID [facility] Last Admin: 12/04/18 21:01 Dose: Not Given Lisinopril (Zestril) 2.5 mg PO DAILY [facility] Sodium Chloride () 500 ml IV BOLUS PRN PRN Reason: VASO-VAGAL PROTOCOL Sodium Chloride () 5 - 15 ml IV UD PRN PRN Reason: SALINE FLUSH Ticagrelor (Brilinta) 90 mg PO BID [facility] Last Admin: 12/04/18 21:16 Dose: 90 mg Medical Necessity - Tobacco Use Smoking Status: Never smoker Tobacco Use: Non-smoker Assessment/Plan All Active Problems STEMI (ST elevation myocardial infarction) (Acute) 63-year-old gentleman in relatively good health who presented with chest discomfort. Diagnosis of acute anterior myocardial infarction patient underwent emergency left heart catheterization with angioplasty and stenting of the left anterior descending artery and diagonal vessel. 1. Acute anterior myocardial infarction patient underwent emergency left heart catheterization on 12/04/18 with angioplasty and stenting of the left anterior descending artery and diagonal vessel. 2. Ischemia Cardiomyopathy with an ejection fraction of 35% 3. Low blood pressure in the 90s patient's baseline 4. DVT prophylaxis; Lovenox Code Visit Inpatient E&M: 85818 Init Hosp L3
--- NOTE | 2018-12-05 08:04 | CRPHASE1 ---
Patient Communication PHII Cardiac Rehab Discussed with Patient:: Yes Guide to Cardiac Rehab Given to Patient:: Yes Cardiac Rehab Facility Choice List Given to Patient:: Yes Choice Program [facility] PHII:: Communication Given to CR, Refer to [facility] Early Intervention School Psychologist:: Keysha Curtis Choice Letter Given to Patient:: Yes Guide to Cardiac Rehab Given by ICU Staff Prior to Discharge: Yes Phase I Charge:: Level I - Education Risk Factors/Lifestyle Smoking Status: Never smoker Hx Hypertension: No Hx Diabetes Mellitus Type 1: No Hx Obesity: No Height: 6 ft 2 in Weight:: 212 lb BMI: 27.2 ETOH: No Caffeine: No Substance Abuse: No Laboratory Values: Cardiac Rehab Phase I Labs Hemoglobin A1c 4.9 % (4.2-6.3) 12/04/18 09:06 Triglycerides 136 mg/dL (-199) 12/05/18 04:10 Cholesterol 129 mg/dL (200) 12/05/18 04:10 LDL Cholesterol 65 mg/dL (0-130) 12/05/18 04:10 HDL Cholesterol 37 mg/dL (40-) L 12/05/18 04:10 Phase I Education Given On:: [place], Nutrition, Antiplatelet medication, CHF, Smoking cessation, Diabetes - Type I, Diabetes - Type II Issues Affecting Care:: None Knowledge of Condition:: Yes - NEEDS REINFORCEMENT Hospital Course Presenting Symptoms:: INDIGESTION Medical/Surgical History CAD:: Yes Valve Disease/Replacement:: No Diabetes:: No Hypertension:: No Dyslipidemia:: Yes CABG: No PTCA:: Yes ICD:: No Pacemaker:: No Discharge/Home/Social Eval Discharge Disposition: Home Marital Status: Cardiac Rehabilitation Info Cardiac Rehabilitation Program Information: Cardiac Rehabilitation is important for patients like you who are recovering from a heart problem. Cardiac rehabilitation programs are recognized as integral to the continued care of the patient with coronary heart disease. The cardiac rehabilitation program is designed to optimize a patient's physical, psychological, and social functioning. Health health care law specialist work in cardiac rehabilitation programs and assist you with getting the treatments you need to get stronger and healthier - like exercise, healthy eating habits, and medications. Cardiac rehabilitation has been show to help people with heart problems live longer and have better life enjoyment than people who do not go to cardiac rehabilitation. Please contact the Cardiac Rehabilitation Program at [facility] at in two weeks if you have not heard from them.
--- NOTE | 2018-12-05 08:15 | CRPH1.INSTRU ---
General Education CAD and cardiac anatomy and function:: Not instructed Explanation of diagnoses and procedures:: Needs reinforcement Sign/Symptoms of TN:: Needs reinforcement Antiplatelet therapy: Patient communicates acknowledgment, Needs reinforcement Proper use of NTG-SL: Not instructed Emergency procedures and activation of EMS: Patient communicates acknowledgment Compliance of all prescribed medications: Patient communicates acknowledgment Smoking Patient Nicotine/Smoking Risk Factors Are:: Never smoked Dyslipidemia Patient Dyslipidemia Risk Factors Are:: Total Cholesterol - 129, Triglycerides - 136, HDL - 37, LDL - 65 Recommendations Include:: Lipid profile provided Dyslipidemia Response Code:: Patient communicates acknowledgment, Needs reinforcement, Not instructed Overweight/Obesity Patient Overweight/Obesity Risk Factors Are:: Overweight = 26-29 Overweight/Obesity:: Not instructed Hypertension Recommendations Include:: Maintain BP <130/85, BP <130/80 if diabetic, DASH dietary guidelines, Decrease/maintain normal body weight, Moderation of ETOH - PT DENIES HX OF HYPERTENSION, NOT PREVIOUSLY ON MEDICATION FOR B/P Heart Disease Heart Disease Response Code:: Not instructed Diabetes Patient Diabetes Risk Factors Are:: No documented hx of diabetes Metabolic Syndrome Metabolic Syndrome Response Code:: Not instructed Sedentary Sedentary Response Code:: Not instructed Stress Stress Response Code:: Not instructed
[2018-12-05] MEDS: TICAGRELOR 90 MG TABLET PO ×2 (08:53→21:32)
[2018-12-05] MEDS: Aspirin E.C. 81 MG Tablet PO (08:54)
--- NOTE | 2018-12-05 10:11 | CASEMGMT ---
RN CM Assessment Presentation: STEMI. PTCA & BETO Prox LAD Intro role of CM and purpose of RN CM assessment to patient in room. Demographics, PCP and Pharmacy verified. Pt sitting in chair, able to participate in RN CM assessment. Pt states he is very independent and everyone explained everything to me thoroughly. PCP: Dr. Beth Specialists: Dr. Vale Preferred [facility]acy: [facility] on [address] Insurance: MMO Prescription Benefit: yes. Discussed Brillinta on dc and savings card. Pt has good understanding. LNOK: , Orly Sin Living Arrangements: Lives independently. Denies needs Transportation: Drives DME: None HHC: None Patient DC goals: Home DC PLAN: Home Maeve SULLIVAN RN ACM
[2018-12-05] MEDS: Carvedilol 3.125 MG TABLET PO (21:32)
[2018-12-05] MEDS: Atorvastatin Calcium 40 MG Tablet PO (21:33)
[2018-12-06 03:00] VITALS: PULSE 81
[2018-12-06 03:10] VITALS: BP 98/63; PULSE 87; RESP 16; TEMP 37.7; O2SAT 94
[2018-12-06 04:30] VITALS: TEMP 37.1
[2018-12-06 06:46] VITALS: PULSE 78
[2018-12-06 07:10] VITALS: O2SAT 96
--- NOTE | 2018-12-06 08:23 | PN.CARD_ITS ---
Subjectve: Patient seen and evaluated. Appears to be doing remarkably well. Walking around the room asymptomatic. Objective: Vital Signs Temp Pulse Resp BP Pulse Ox 98.8 F 78 16 98/63 96 12/06/18 04:30 12/06/18 06:46 12/06/18 03:10 12/06/18 03:10 12/06/18 07:10 Oxygen Flow Rate (L/min) 2 Oxygen Delivery Method Room Air Weight: 212 lb 1.355 oz Body Mass Index (BMI) 25.9 Intake and Output for Last 24 Hours 12/04/18 12/05/18 12/06/18 23:59 23:59 23:59 Intake Total 1340 / 1340 480 / 480 120 / 120 Output Total 450 / 450 Balance 890 / 890 480 / 480 120 / 120 General: Awake, Alert, Oriented x 3 HEENT: PERRL, EOMI, Sclera Non Icteric Neck: Supple, Good ROM, No Lymph Node Enlargement Lungs: Clear to auscultation Cardiovascular: Regular Rhythm, Normal S1, Normal S2, No Murmurs, No Rubs, No Gallops Vascular: No Carotid Bruits, Normal Femoral Pulses, Normal Radial Pulses, Normal Dorsalis Pedal Pulse, Normal Posterior Tibial Pulses Abdomen: Bowel Sounds Present, Soft, Non Tender, No HSM, No Organomegaly Extremities: No Cyanosis, No Clubbing, No edema Lymphatic: No Lymph Node Enlargement Neurological: No Focal Motor or Sensory Deficit Rhythm: EKG: ECHO: Stress Test: Cardiac Cath: PCI: CT Surgery: Holter monitor: EPS: PPM: CXR: Chest CT Scan: Medical Necessity - Tobacco Use Smoking Status: Never smoker Tobacco Use: Non-smoker Assessment/Plan 1. Acute anterior myocardial infarction * Patient presents with an acute anterior myocardial infarction , status post angioplasty and stenting of the left anterior descending artery and diagonal vessel. * This morning appears to be doing well mild EKG changes with evolutionary anterior changes * Will recommend echocardiogram this morning * Beta-blockers, aspirin and lisinopril as tolerated * High intensity statin * * * The patient lives in [place] and would follow up with his mother's safety fire boss there. Stable to be discharged this morning. * Further recommendations will depend on the results of the above.
[2018-12-06 09:10] VITALS: BP 84/52; PULSE 79; RESP 16; TEMP 36.6; O2SAT 97
--- NOTE | 2018-12-06 09:21 | DCINST_ITS ---
- Discharge Diagnoses Current Active Problems: Current Active and Chronic Problems (Last Updated 12/05/18 @ 18:41 by Awilda Ramirez) Ischemic cardiomyopathy (Acute) Dilated aortic root (Chronic) Anterior myocardial infarction (Acute 12/04/18) Essential (primary) hypertension (Chronic) History of coronary artery stent placement (Acute 12/04/18) [id number] LAD w/ 3.0 x 24 mm Synergy MR Stent, POBA-D1 12/04/18 Atherosclerosis of coronary artery of [place] heart without angina pectoris (Chronic) [id number] LAD w/ 3.0 x 24 mm Synergy MR Stent, POBA-D1 12/04/18 STEMI (ST elevation myocardial infarction) (Acute 12/04/18) Hyperlipidemia (Chronic) You will use the following diet at home:: Cardiac Discharge Activity: Return to Normal Activity Allergies/Adverse Reactions: Allergies No Known Allergies Allergy (Verified 12/04/18 08:48) Medications to take at Discharge Aspirin E.C. [Ecotrin] 81 mg PO DAILY@0800 #90 tablet 12/06/18 Atorvastatin Calcium [Lipitor] 40 mg PO QHS #90 tablet 12/06/18 Carvedilol [Coreg (Beta Consuelo)] 3.125 mg PO BID #180 tablet 12/06/18 Lisinopril [Zestril] 2.5 mg PO DAILY #90 tablet 12/06/18 Ticagrelor [Brilinta] 90 mg PO BID #180 tablet 12/06/18 The following prescriptions were given: Aspirin E.C. [Ecotrin] 81 mg PO DAILY@0800 #90 tablet Atorvastatin Calcium [Lipitor] 40 mg PO QHS #90 tablet Carvedilol [Coreg (Beta Consuelo)] 3.125 mg PO BID #180 tablet Lisinopril [Zestril] 2.5 mg PO DAILY #90 tablet Ticagrelor [Brilinta] 90 mg PO BID #180 tablet Orders to be completed after discharge: Phase II, Outpatient Cardiac Rehab Location: None Selected Primary Care Physician: [facility] Doctor,Out of [Primary Care Provider] - Please follow up with your Primary Care Physician in: in 1-2 weeks Test Results: Test results from this visit will be discussed in further detail at your follow- up appointment, if applicable. Please Follow Up With: Chacho Vale MD When: in 2-4 weeks Proposed Discharge Date: 12/06/18
--- NOTE | 2018-12-06 09:22 | PCM.DC.SUM ---
Discharge Date and Diagnosis - Problem List Patient Problems: Active and Suspected Problems (Last Updated 12/05/18 @ 18:41 by Awilda Ramirez) Ischemic cardiomyopathy (Acute) Anterior myocardial infarction (Acute 12/04/18) History of coronary artery stent placement (Acute 12/04/18) [id number] LAD w/ 3.0 x 24 mm Synergy MR Stent, POBA-D1 12/04/18 STEMI (ST elevation myocardial infarction) (Acute 12/04/18) Date of Admission: 12/04/18 Date of Discharge: 12/06/18 - Primary Discharge Diagnosis Active and Suspected Problems (Last Updated 12/05/18 @ 18:41 by Awilda Ramirez) Ischemic cardiomyopathy (Acute) Anterior myocardial infarction (Acute 12/04/18) History of coronary artery stent placement (Acute 12/04/18) RVI-GFU-Guwe LAD w/ 3.0 x 24 mm Synergy MR Stent, POBA-D1 12/04/18 STEMI (ST elevation myocardial infarction) (Acute 12/04/18) - Secondary Discharge Diagnosis Chronic Problems (Last Updated 12/05/18 @ 18:41 by Awilda Ramirez) Dilated aortic root (Chronic) Essential (primary) hypertension (Chronic) Atherosclerosis of coronary artery of [place] heart without angina pectoris (Chronic) [id number]-YDX-Unid LAD w/ 3.0 x 24 mm Synergy MR Stent, POBA-D1 12/04/18 Hyperlipidemia (Chronic) Hospital Course and Treatment Summary of Care Provided: 63-year-old gentleman in relatively good health who presented with chest discomfort. Diagnosis of acute anterior myocardial infarction patient underwent emergency left heart catheterization with angioplasty and stenting of the left anterior descending artery and diagonal vessel. 1. Acute anterior myocardial infarction patient underwent emergency left heart catheterization on 12/04/18 with angioplasty and stenting of the left anterior descending artery and diagonal vessel. The patient was discharged home on beta blockers, OLMAN inhibitor, statin therapy, aspirin as well as Brilinta 2. Ischemia Cardiomyopathy with an ejection fraction of 35% 3. Low blood pressure in the 90s; patient's baseline 4. DVT prophylaxis; Lovenox Patient Problems: Active and Suspected Problems (Last Updated 12/05/18 @ 18:41 by Awilda Ramirez) Ischemic cardiomyopathy (Acute) Anterior myocardial infarction (Acute 12/04/18) History of coronary artery stent placement (Acute 12/04/18) [id number]-Xwrv LAD w/ 3.0 x 24 mm Synergy MR Stent, POBA-D1 12/04/18 STEMI (ST elevation myocardial infarction) (Acute 12/04/18) Objective: GENERAL: cooperative HEENT: Atraumatic; moist oral mucosa EYES; Anicteric, Normal Conjunctiva NECK; supple, normal thyroid, no distended JVD. RESPIRATORY: Diminished to auscultation bilaterally, CARDIOVASCULAR: Regular S1 S2, no audible murmurs GI: soft, non-tender, normoactive bowel sounds, PSYCH; Normal affect - Physical Exam Vital Signs Temp Pulse Resp BP Pulse Ox 98.8 F 78 16 98/63 96 12/06/18 04:30 12/06/18 06:46 12/06/18 03:10 12/06/18 03:10 12/06/18 07:10 Oxygen Flow Rate (L/min) 2 Oxygen Delivery Method Room Air Weight: 96.2 kg Body Mass Index (BMI) 25.9 Intake and Output for Last 24 Hours 12/04/18 12/05/18 12/06/18 23:59 23:59 23:59 Intake Total 1340 / 1340 480 / 480 120 / 120 Output Total 450 / 450 Balance 890 / 890 480 / 480 120 / 120 Discharge Activity: Return to Normal Activity Home Medications: Medications to take at Discharge Aspirin E.C. [Ecotrin] 81 mg PO DAILY@0800 #90 tablet 12/06/18 Atorvastatin Calcium [Lipitor] 40 mg PO QHS #90 tablet 12/06/18 Carvedilol [Coreg (Beta Consuelo)] 3.125 mg PO BID #180 tablet 12/06/18 Lisinopril [Zestril] 2.5 mg PO DAILY #90 tablet 12/06/18 Ticagrelor [Brilinta] 90 mg PO BID #180 tablet 12/06/18 Following Prescrptions Were Given to Patient: Aspirin E.C. [Ecotrin] 81 mg PO DAILY@0800 #90 tablet Atorvastatin Calcium [Lipitor] 40 mg PO QHS #90 tablet Carvedilol [Coreg (Beta Consuelo)] 3.125 mg PO BID #180 tablet Lisinopril [Zestril] 2.5 mg PO DAILY #90 tablet Ticagrelor [Brilinta] 90 mg PO BID #180 tablet Other Amb Orders: Phase II, Outpatient Cardiac Rehab Location: None Selected Primary Care Physician: John Dowell,Out of [Primary Care Provider] - Please follow up with your Primary Care Physician in: in 1-2 weeks Please Follow Up With: Chacho Vale MD When: in 2-4 weeks Disposition: Home Minutes spent on discharge:: 35 Patient Condition:: Stable Medical Necessity - Tobacco Use Smoking Status: Never smoker Tobacco Use: Non-smoker Meaningful Use Info Meaningful Use Diagnoses (Choose all that apply): AMI - AMI Aspirin given w/in 24hrs of arrival?: Yes ASA at discharge?: Yes Statins at discharge?: Yes Olman/ARB at discharge?: Yes Beta Consuelo at discharge?: Yes Done w/ Acute [place] measure.: Yes Code Visit Inpatient E&M: 82209 Disch Hosp
[2018-12-06] MEDS: TICAGRELOR 90 MG TABLET PO (09:23)
[2018-12-06] MEDS: Aspirin E.C. 81 MG Tablet PO (09:23)
--- NOTE | 2018-12-06 09:25 | DS.PCM_ITS ---
Discharge Date and Diagnosis - Problem List Patient Problems: Active and Suspected Problems (Last Updated 12/05/18 @ 18:41 by Awilda Ramirez) Ischemic cardiomyopathy (Acute) Anterior myocardial infarction (Acute 12/04/18) History of coronary artery stent placement (Acute 12/04/18) BIW-MKU-Guwe LAD w/ 3.0 x 24 mm Synergy MR Stent, POBA-D1 12/04/18 STEMI (ST elevation myocardial infarction) (Acute 12/04/18) Date of Admission: 12/04/18 Date of Discharge: 12/06/18 - Primary Discharge Diagnosis Active and Suspected Problems (Last Updated 12/05/18 @ 18:41 by Awilda Ramirez) Ischemic cardiomyopathy (Acute) Anterior myocardial infarction (Acute 12/04/18) History of coronary artery stent placement (Acute 12/04/18) BTX-LBV-Htzr LAD w/ 3.0 x 24 mm Synergy MR Stent, POBA-D1 12/04/18 STEMI (ST elevation myocardial infarction) (Acute 12/04/18) - Secondary Discharge Diagnosis Chronic Problems (Last Updated 12/05/18 @ 18:41 by Awilda Ramirez) Dilated aortic root (Chronic) Essential (primary) hypertension (Chronic) Atherosclerosis of coronary artery of [place] heart without angina pectoris (Chronic) JLZ-SRR-Kxsc LAD w/ 3.0 x 24 mm Synergy MR Stent, POBA-D1 12/04/18 Hyperlipidemia (Chronic) Hospital Course and Treatment Summary of Care Provided: 63-year-old gentleman in relatively good health who presented with chest discomfort. Diagnosis of acute anterior myocardial infarction patient underwent emergency left heart catheterization with angioplasty and stenting of the left anterior descending artery and diagonal vessel. 1. Acute anterior myocardial infarction patient underwent emergency left heart catheterization on 12/04/18 with angioplasty and stenting of the left anterior descending artery and diagonal vessel. The patient was discharged home on beta blockers, OLMAN inhibitor, statin therapy, aspirin as well as Brilinta 2. Ischemia Cardiomyopathy with an ejection fraction of 35% 3. Low blood pressure in the 90s; patient's baseline 4. DVT prophylaxis; Lovenox Patient Problems: Active and Suspected Problems (Last Updated 12/05/18 @ 18:41 by Awilda Ramirez) Ischemic cardiomyopathy (Acute) Anterior myocardial infarction (Acute 12/04/18) History of coronary artery stent placement (Acute 12/04/18) BFL-WUT-Hske LAD w/ 3.0 x 24 mm Synergy MR Stent, POBA-D1 12/04/18 STEMI (ST elevation myocardial infarction) (Acute 12/04/18) Objective: GENERAL: cooperative HEENT: Atraumatic; moist oral mucosa EYES; Anicteric, Normal Conjunctiva NECK; supple, normal thyroid, no distended JVD. RESPIRATORY: Diminished to auscultation bilaterally, CARDIOVASCULAR: Regular S1 S2, no audible murmurs GI: soft, non-tender, normoactive bowel sounds, PSYCH; Normal affect - Physical Exam Vital Signs Temp Pulse Resp BP Pulse Ox 98.8 F 78 16 98/63 96 12/06/18 04:30 12/06/18 06:46 12/06/18 03:10 12/06/18 03:10 12/06/18 07:10 Oxygen Flow Rate (L/min) 2 Oxygen Delivery Method Room Air Weight: 96.2 kg Body Mass Index (BMI) 25.9 Intake and Output for Last 24 Hours 12/04/18 12/05/18 12/06/18 23:59 23:59 23:59 Intake Total 1340 / 1340 480 / 480 120 / 120 Output Total 450 / 450 Balance 890 / 890 480 / 480 120 / 120 Discharge Activity: Return to Normal Activity Home Medications: Medications to take at Discharge Aspirin E.C. [Ecotrin] 81 mg PO DAILY@0800 #90 tablet 12/06/18 Atorvastatin Calcium [Lipitor] 40 mg PO QHS #90 tablet 12/06/18 Carvedilol [Coreg (Beta Consuelo)] 3.125 mg PO BID #180 tablet 12/06/18 Lisinopril [Zestril] 2.5 mg PO DAILY #90 tablet 12/06/18 Ticagrelor [Brilinta] 90 mg PO BID #180 tablet 12/06/18 Following Prescrptions Were Given to Patient: Aspirin E.C. [Ecotrin] 81 mg PO DAILY@0800 #90 tablet Atorvastatin Calcium [Lipitor] 40 mg PO QHS #90 tablet Carvedilol [Coreg (Beta Consuelo)] 3.125 mg PO BID #180 tablet Lisinopril [Zestril] 2.5 mg PO DAILY #90 tablet Ticagrelor [Brilinta] 90 mg PO BID #180 tablet Other Amb Orders: Phase II, Outpatient Cardiac Rehab Location: None Selected Primary Care Physician: John Dowell,Out of [Primary Care Provider] - Please follow up with your Primary Care Physician in: in 1-2 weeks Please Follow Up With: Chacho Vale MD When: in 2-4 weeks Disposition: Home Minutes spent on discharge:: 35 Patient Condition:: Stable Medical Necessity - Tobacco Use Smoking Status: Never smoker Tobacco Use: Non-smoker Meaningful Use Info Meaningful Use Diagnoses (Choose all that apply): AMI - AMI Aspirin given w/in 24hrs of arrival?: Yes ASA at discharge?: Yes Statins at discharge?: Yes Olman/ARB at discharge?: Yes Beta Consuelo at discharge?: Yes Done w/ Acute [place] measure.: Yes Code Visit Inpatient E&M: 61011 Disch Hosp
--- NOTE | 2018-12-06 10:00 | EKG12_ITS ---
Test Reason : AM EKG Blood Pressure : / mmHG Vent. Rate : 081 BPM Atrial Rate : 081 BPM P-R Int : 178 ms QRS Dur : 084 ms QT Int : 380 ms P-R-T Axes : 062 035 087 degrees QTc Int : 441 ms Normal sinus rhythm Low voltage QRS Cannot rule out Anteroseptal infarct , age undetermined T wave abnormality, consider lateral ischemia Abnormal ECG Confirmed by DAO MCCORMICK, DAMON ([id number]), editorial assistant KAYLAN MAJANO ([id number]) on 12/07/2018 1:26:31 PM Referred By: Keysha Curtis Confirmed By:DAMON DC MD
--- NOTE | 2018-12-06 10:11 | CASEMGMT ---
Per Ariel, pharmacist at [facility], pt's Brilinta co-pay will be $24.99 and per Parminder WHITLEY CM, pt was already provided with Brilinta savings card previously. Roya WHITLEY CM
== END 2018-12-06 09:51 | disposition home or self-care (01) | DRG 247 ==
LOC: ED 09:04 → ICU 09:14 → PCU 12-05 17:14
PROVIDERS: Internal Medicine Cardiovascular Disease; Admitting Provider Internal Medicine; Emergency Provider Emergency Medicine; Referring Provider Internal Medicine Cardiovascular Disease; Visit Provider Internal Medicine
DX: I21.09 ST elevation (STEMI) myocardial infarction involving other coronary artery of anterior wall (principal); I25.5 Ischemic cardiomyopathy; I25.10 Atherosclerotic heart disease of native coronary artery without angina pectoris; E78.5 Hyperlipidemia, unspecified; D69.6 Thrombocytopenia, unspecified; I10 Essential (primary) hypertension
CPT/HCPCS: 71045; 80048; 80053; 80061; 82803; 83036; 84484; 85025; 85027; 85347; 85610; 85730; 92921; 92941; 93005; 93306; 93458; 99285; J7030; Q9967; A4216; C1725; C1757; C1769; C1874; C1887; C1894; C9606; J0583; J2405